=== PATIENT | female | born 2000 | race African-American/Black ===

== ENCOUNTER 2021-10-15 00:26 | Inpatient (IN) ==
[2021-10-15] MEDS ORDERED: LACTATED RINGERS 500 ML IV PRN (00:47)
[2021-10-15] MEDS ORDERED: ONDANSETRON 4 MG/2 ML VIAL IV PRN ×2 (00:47→16:38)
[2021-10-15 01:51] LABS: Basophils % 0.5 % (0.0-0.8); Eosinophils # 0.2 10*3/uL (0.0-0.87); Eosinophils % 2.7 % (0.00-10.9); Hematocrit 35.6 VOL% (35.7-47.0); Hemoglobin 11.3 GM/DL (12.0-16.0); Immature Granulocytes % 0.5 %; Immature Granulocytes Absolute 0.03 #; Lymphocytes # 2.1 10*3/uL (1.4-4.0); Lymphocytes % 33.9 % (21.3-54.2); Mean Corpuscular HGB Conc 31.7 GM/DL (32-36); Monocytes % 13.6 % (1.7-12.7); Neutrophils % 48.8 % (38.7-73.9); Platelet Count 468 T/CUMM (130-400); Red Blood Count 4.09 MC/CUMM (3.8-5.5); Red Cell Distribution Width 14.2 % (9.3-17.3); White Blood Count 6.3 T/CUMM (4-12)
[2021-10-15 02:12] LABS: Alanine Aminotransferase 53 U/L (13-56); Albumin 2.6 G/DL (3.4-5.0); Alkaline Phosphatase 160 U/L (45-117); Aspartate Amino Transferase 27 U/L (0-37); Bilirubin,Total < 0.39 MG/DL (0.20-1.00); Blood Urea Nitrogen 9 MG/DL (7-18); Calcium 9.7 MG/DL (8.5-10.1); Carbon Dioxide 20 MMOL/L (21-32); Estimated Glom Filtration Rate 183 ML/MIN; Glucose 76 MG/DL (74-106); Osmolality,Calculated 267.1 MOS/KG (273-304); Sodium 135 MMOL/L (136-145); Total Protein 7.3 G/DL (6.4-8.2)
[2021-10-15 06:13] LABS: Bacteria,Urine Occasional /HPF (Few); Bilirubin,Urine Negative (Negative); Blood, Urine Negative (Negative); Glucose,Urine (UA) Negative (Negative); Ketones,Urine Negative (Negative); Mucus,Urine Occasional /LPF (Occasional); Nitrite,Urine Negative (Negative); Protein,Urine Negative; RBC,Urine 2 /HPF (0-4); Squamous Epithelial Cell,Urine Few /HPF (0-10); Urine Appearance Slightly Hazy (Clear); Urine Color Yellow (Yellow); Urine Specific Gravity 1.012 (1.001-1.035); Urine Urobilinogen < 2.0 EU/DL (0.2-1.0)
[2021-10-15] MEDS ORDERED: OXYTOCIN/LR 20 UNIT/1,000 ML BAG IV SCH (10:30)
[2021-10-15] MEDS: LACTATED RINGERS 1,000 ML IV PRN ×2 (10:47→15:06)
[2021-10-15] MEDS ORDERED: CITRIC ACID/SODIUM CITRATE 30 ML UDCUP PO ONE (14:38)
[2021-10-15] MEDS ORDERED: ceFAZolin 2,000 MG/50 ML DUPLEX IV ONE (14:38)
[2021-10-15] MEDS ORDERED: FAMOTIDINE 20 MG/2 ML VIAL IV ONE (14:38)
[2021-10-15] MEDS ORDERED: OXYTOCIN/LR 30 UNIT/1,000 ML BAG IV ONE (14:40)
[2021-10-15] MEDS ORDERED: OXYTOCIN 10 UNIT/ML VIAL IM ONE (14:40)
[2021-10-15] MEDS ORDERED: PHENYLEPHRINE 1 MG/10 ML SYRINGE IV ONE (14:55)
[2021-10-15] MEDS ORDERED: BUPIVACAINE SPINAL 0.75% 2 ML AMP SPINAL ONE (14:55)
[2021-10-15] MEDS ORDERED: ONDANSETRON 4 MG/2 ML VIAL ONE (14:55)
[2021-10-15] MEDS ORDERED: miSOPROStoL 200 MCG TABLET ONE (14:58)
[2021-10-15] MEDS ORDERED: TRANEXAMIC ACID 1,000 MG/10 ML VIAL ONE (14:58)
[2021-10-15] MEDS ORDERED: CARBOPROST TROMETHAMINE 250 MCG/ML AMP IM ONE (14:59)
[2021-10-15] MEDS ORDERED: METHYLERGONOVINE 0.2 MG/1 ML AMP ONE (14:59)
[2021-10-15] MEDS ORDERED: KETOROLAC 30 MG/1 ML VIAL ONE (16:13)
[2021-10-15] MEDS ORDERED: ACETAMINOPHEN INJ 1,000 MG/100 ML VIAL IV ONE (16:13)
[2021-10-15] MEDS ORDERED: RHO(D) IMMUNE GLOBULIN 300 MCG SYRINGE IM ONE (16:38)
[2021-10-15] MEDS ORDERED: ACETAMINOPHEN 325 MG TABLET PO PRN (16:38)
[2021-10-15] MEDS ORDERED: OXYTOCIN/LR 20 UNIT/1,000 ML BAG IV ONE (16:38)
[2021-10-15] MEDS ORDERED: MAGNESIUM HYDROXIDE SUSP 30 ML UDCUP PO PRN (16:38)
[2021-10-15] MEDS ORDERED: SIMETHICONE CHEW 80 MG TABLET PO PRN (16:38)
[2021-10-15] MEDS ORDERED: IBUPROFEN 800 MG TABLET PO PRN (16:38)
[2021-10-15 16:42] LABS: Cord Arterial Blood HCO3 19.8 MMOL/L
[2021-10-15 16:45] LABS: Cord Venous Blood PO2 21.3
[2021-10-15] MEDS ORDERED: LACTATED RINGERS 1,000 ML IV SCH (17:00)
[2021-10-15 17:07] LABS: Bilirubin,Urine Negative (Negative); Blood, Urine Negative (Negative); Glucose,Urine (UA) Negative (Negative); Ketones,Urine 20 mg/dL (Negative); Mucus,Urine Occasional /LPF (Occasional); Nitrite,Urine Negative (Negative); Protein,Urine Negative; RBC,Urine 1 /HPF (0-4); Squamous Epithelial Cell,Urine Occasional /HPF (0-10); Urine Appearance CLEAR (Clear); Urine Color Yellow (Yellow); Urine Urobilinogen < 2.0 EU/DL (0.2-1.0)
[2021-10-15] MEDS: ACETAMINOPHEN 500 MG TABLET PO PRN (22:11)
[2021-10-15] MEDS: KETOROLAC 30 MG/1 ML VIAL IV SCH (22:17)
[2021-10-15] MEDS: DOCUSATE SODIUM 100 MG CAPSULE PO SCH (22:37)
[2021-10-16 01:18] LABS: Basophils % 0.2 % (0.0-0.8); Eosinophils # 0.1 10*3/uL (0.0-0.87); Eosinophils % 1.2 % (0.00-10.9); Hematocrit 31.2 VOL% (35.7-47.0); Hemoglobin 10.2 GM/DL (12.0-16.0); Immature Granulocytes % 0.3 %; Immature Granulocytes Absolute 0.03 #; Lymphocytes # 1.7 10*3/uL (1.4-4.0); Lymphocytes % 19.1 % (21.3-54.2); Mean Corpuscular HGB Conc 32.7 GM/DL (32-36); Mean Corpuscular Volume 86.2 FL (87-102); Mean Platelet Volume 8.8 FL (9.6-12.0); Monocytes % 11.3 % (1.7-12.7); Neutrophils % 67.9 % (38.7-73.9); Platelet Count 372 T/CUMM (130-400); Red Blood Count 3.62 MC/CUMM (3.8-5.5); Red Cell Distribution Width 13.9 % (9.3-17.3)
[2021-10-16] MEDS: ACETAMINOPHEN 500 MG TABLET PO PRN (03:31)
[2021-10-16] MEDS: KETOROLAC 30 MG/1 ML VIAL IV SCH ×2 (03:37→10:11)
[2021-10-16] MEDS: METOCLOPRAMIDE 10 MG TABLET PO SCH ×2 (07:43→16:00)
[2021-10-16] MEDS: DOCUSATE SODIUM 100 MG CAPSULE PO SCH ×2 (09:08→20:16)
[2021-10-16] MEDS: MULTIVITAMIN (PRENATAL) TABLET PO SCH (09:08)
[2021-10-16 09:38] LABS: Basophils % 0.4 % (0.0-0.8); Eosinophils # 0.2 10*3/uL (0.0-0.87); Eosinophils % 1.9 % (0.00-10.9); Hematocrit 28.9 VOL% (35.7-47.0); Hemoglobin 9.4 GM/DL (12.0-16.0); Immature Granulocytes % 0.4 %; Immature Granulocytes Absolute 0.04 #; Lymphocytes # 1.7 10*3/uL (1.4-4.0); Lymphocytes % 19.1 % (21.3-54.2); Mean Corpuscular HGB Conc 32.5 GM/DL (32-36); Mean Corpuscular Volume 86.8 FL (87-102); Mean Platelet Volume 8.2 FL (9.6-12.0); Monocytes % 9.6 % (1.7-12.7); Neutrophils % 68.6 % (38.7-73.9); Platelet Count 338 T/CUMM (130-400); Red Blood Count 3.33 MC/CUMM (3.8-5.5); White Blood Count 9.1 T/CUMM (4-12)
[2021-10-17] MEDS: METOCLOPRAMIDE 10 MG TABLET PO SCH ×2 (00:29→07:51)
[2021-10-17] MEDS: DOCUSATE SODIUM 100 MG CAPSULE PO SCH (08:29)
[2021-10-17] MEDS: MULTIVITAMIN (PRENATAL) TABLET PO SCH (08:29)
[2021-10-17 08:43] VITALS: BP 111/63
== END 2021-10-17 13:15 | disposition home or self-care (01) | DRG 540 ==
LOC: N.LD 00:26 → N.OB 20:30
PROVIDERS: ADMIT Obstetrics & Gynecology; ATTEND Obstetrics & Gynecology
PROC: LDCSECT (ICD-10-PCS; 2021-10-15 16:00)